=== PATIENT | male | born 1965 | race American Indian/Alaskan Native ===

== ENCOUNTER 2018-01-07 15:07 | Outpatient (CLI) | payer BC ==
--- NOTE | 2018-01-07 17:19 | XRay Report ---
FINAL REPORT EXAM: XR CHEST ROUTINE 2V HISTORY: COUGH TECHNIQUE: Two view chest PA and lateral PRIORS: None. FINDINGS: Cardiac and mediastinal contours are unremarkable. No focal pulmonary infiltrate is identified. No pleural fluid collection seen. Pulmonary vasculature is unremarkable. IMPRESSION: Negative two-view chest
== END 2018-01-07 15:08 | disposition home or self-care (01) ==
LOC: XRAY 15:07
PROVIDERS: ATTEND Nurse Practitioner
DX: R05 Cough (principal)
CPT/HCPCS: 71046

== ENCOUNTER 2018-03-27 13:48 | Outpatient (CLI) | payer BC ==
--- NOTE | 2018-03-28 14:46 | XRay Report ---
Bilateral feet: Calcaneal spurs. Routine views of both feet are obtained. The soft tissues are unremarkable. The joints are well aligned and preserved. The bones are well-mineralized. Bilateral spurs are identified attachments of the Achilles tendons. No plantar spur identified. Impressions: Achilles spurs bilaterally.
== END 2018-03-27 13:49 | disposition home or self-care (01) ==
LOC: XRAY 13:48
PROVIDERS: ATTEND Orthopaedic Surgery
DX: M77.32 Calcaneal spur, left foot (principal); M77.31 Calcaneal spur, right foot

== ENCOUNTER 2018-06-27 05:57 | Day surgery (SDC) | payer BC ==
[~2018-06-27 05:57] MED LIST: GARAMYCIN/NS 80 MG/100 ML 100 ML IV SCH; VANCOMYCIN PHARMACY TO DOSE IV SCH; VANCOMYCIN/NS 1 GM/250 ML 1 GM/250 ML BAG IV SCH
[2018-06-27] MEDS ORDERED: MARCAINE 0.25% INFILTRATI ONE ×4 (06:32→08:43)
[2018-06-27] MEDS ORDERED: XYLOCAINE 1% 20 mL ONE ×2 (06:32→07:21)
[2018-06-27] MEDS ORDERED: ANTIBIOTIC OINT TP ONE ×2 (06:33→07:21)
[2018-06-27] MEDS ORDERED: LACTATED RINGERS 1,000 ML ONE (06:58)
[2018-06-27] MEDS ORDERED: BACTROBAN 2% ONE (07:22)
[2018-06-27] MEDS ORDERED: VERSED IV NR (07:25)
[2018-06-27] MEDS ORDERED: PEPCID IV ONE (07:32)
[2018-06-27] MEDS ORDERED: NEURONTIN ONE (07:34)
[2018-06-27] MEDS ORDERED: DIPRIVAN 10 MG/ML IV ONE (07:45)
[2018-06-27] MEDS ORDERED: VERSED IV ONE (07:45)
[2018-06-27] MEDS ORDERED: DILAUDID ONE (07:46)
[2018-06-27] MEDS ORDERED: LACTATED RINGERS 1,000 ML IV SCH (08:00)
[2018-06-27] MEDS ORDERED: DEPO-Medrol ONE (08:15)
[2018-06-27] MEDS ORDERED: XYLOCAINE 1% 20 mL INFILTRATI ONE ×2 (08:43)
[2018-06-27] MEDS ORDERED: DEPO-Medrol INTRA-ARTI ONE ×2 (08:44)
[2018-06-27] MEDS ORDERED: BACTROBAN 2% TP ONE (08:48)
[2018-06-27] MEDS ORDERED: DEMEROL IV PRN (09:09)
[2018-06-27] MEDS ORDERED: DILAUDID IV PRN (09:09)
[2018-06-27] MEDS ORDERED: ZOFRAN IV PRN (09:09)
--- NOTE | 2018-06-27 09:11 | Anesthesia Day of Surgery ---
Anesthesia Day of Surgery - Day of Surgery Patient Examined: Yes Patient H&P Reviewed: Yes Patient is NPO: Yes
--- NOTE | 2018-06-27 09:11 | Anesthesia Consultation ---
Anesthesia Consult and Med Hx Date of service: 06/27/18 - Airway Anesthetic Teeth Evaluation: Good ROM Head & Neck: Adequate Mental/Hyoid Distance: Adequate Mallampati Class: Class III Intubation Access Assessment: Possibly Difficult - Pulmonary Exam CTA: Yes - Cardiac Exam Cardiac Exam: RRR - Pre-Operative Health Status ASA Pre-Surgery Classification: ASA3 Proposed Anesthetic Plan: MAC - Pulmonary Hx Smoking: No Hx Asthma: Yes (REPORTS MILD ASTHMA/REACTIVE AIRWAY DISEASE) Hx Sleep Apnea: No (KENDELL PRE SCREEN LOW RISK) - Cardiovascular System Hx Hypertension: No - Other Systems Hx Cancer: No
[2018-06-27] MEDS ORDERED: TORADOL ONE (09:17)
--- NOTE | 2018-06-27 09:22 | XRay Report ---
BILATERAL FEET RADIOGRAPHS INDICATION: Removal of bone spurs and soft tissue masses on both feet. COMPARISON: 03/27/2018. FINDINGS: AP/oblique and lateral views of both feet demonstrate grossly stable articulation and bony appearance, including moderate to large dorsal and small plantar calcaneal spurs bilaterally. No focal suspicious erosions. New mild soft tissue air bilaterally, more so dorsally and likely postoperative. CONCLUSION: New bilateral feet likely postoperative soft tissue air with grossly stable bony appearance, including degenerative calcaneal spurs. Please correlate. Thank you for the opportunity to participate in this patient's care.
[2018-06-27] MEDS ORDERED: TORADOL IV NR (09:23)
[2018-06-27] MEDS ORDERED: NORCO 7.5/325 PO SCH (10:18)
[2018-06-27 11:30] VITALS: BP 135/80
--- NOTE | 2018-07-02 18:19 | Operative Report ---
PREOPERATIVE DIAGNOSES: 1. Painful ganglionic cyst, unknown soft tissue mass, right medial column, first ray and bone spur. 2. Painful ganglionic cyst, unknown soft tissue mass, left medial column, first ray and bone spur. POSTOPERATIVE DIAGNOSIS: 1. Unknown soft tissue mass, bone spur, right medial column. 2. Unknown soft tissue mass, bone spur, left medial column. SURGEON: Tarun Marr DPM. ANESTHESIA: Local with monitored anesthesia care and IV sedation. TOURNIQUET: Pneumatic ankle tourniquet, left and right ankle. ESTIMATED BLOOD LOSS: Less than 20 mL. PROCEDURE IN DETAIL: The patient was brought into the operating room and placed on the operating table in supine position. Following intravenous sedation, the patient was given 2 grams of Ancef prophylactically. At this time, after adequate IV sedation, the patient was given 10 mL of a 1:1 mixture of 1% lidocaine plain plus 0.5% Marcaine plain into the affected sites of the medial column of the left foot and the medial column on the right foot. There to be noted at this time, the foot was scrubbed, prepped and draped in the usual aseptic manner and the foot was cleansed with alcohol and bacitracin prior to infiltration of local anesthesia. Esmarch was used and foot was exsanguinated to 250 mmHg. Same thing was performed on the opposite foot. At this time, attention was directed to the medial column of the right foot in which a soft tissue mass was at the metatarsal cuneiform joint of the first ray. At this time, with careful dissection with use of a #10 blade, dissection was carried deep down to the capsular structures in which all vital neurovascular structures was identified and retracted and cauterized as needed. At this particular time, there was identified a prominent capsule that was absolutely removed without incident and spread it open to visualize a prominent exostosis and soft tissue mass at the metatarsal cuneiform joint with the use of a sagittal saw and careful dissection. The lesion and soft tissue mass was thus removed along with rasping out of the base and removal of a spur. At this time, the tissue was passed from the operative field to be sent to the laboratory for further diagnosis and evaluation and the area was rasped with a rasping saw and flushed copiously with normal saline. Opposite foot will be performed on that same exact procedure without addition or omission was performed. The deep closure was performed with 3-0 Vicryl followed by 4-0 Vicryl followed by subcuticular stitches with 4-0 Vicryl and superficially with 4-0 Prolene horizontal stitches. 1 mL of dexamethasone phosphate was infiltrated into the right foot. Same was done on the left foot. The patient tolerated the procedure and anesthesia well. Area was dressed with bacitracin ointment, Adaptic, sterile compressive dressing and Coban. Pneumatic ankle tourniquet was deflated. Prompt hyperemic response was noted to all digits of the affected foot that to be noted the same procedure was performed on the opposite foot without addition or omission. The patient will be transferred to recovery and discharged home with both written and oral postoperative instructions. JOB# [id number] GM/ADAL
== END 2018-06-27 11:36 | disposition home or self-care (01) ==
LOC: OR 05:57
PROVIDERS: ATTEND Podiatrist Foot & Ankle Surgery
DX: M79.89 Other specified soft tissue disorders (principal); M77.51 Other enthesopathy of right foot and ankle; M77.52 Other enthesopathy of left foot and ankle; M89.9 Disorder of bone, unspecified; K21.9 Gastro-esophageal reflux disease without esophagitis; J45.909 Unspecified asthma, uncomplicated; G43.909 Migraine, unspecified, not intractable, without status migrainosus; Z79.899 Other long term (current) drug therapy; Z91.040 Latex allergy status; Z88.0 Allergy status to penicillin; Z98.890 Other specified postprocedural states
CPT/HCPCS: 28104; 73620; 88304; 88311; J1030; J1170; J1885; J2250; J2704; J3370; J7120; 88309